=== PATIENT | male | born 1950 | race Caucasian/White ===

== ENCOUNTER 2016-10-01 10:05 | Day surgery (SDC) | payer OTHER, MEDICARE ==
[2016-09-30 15:22] VITALS: BMI 32.8
[2016-10-01] MEDS ORDERED: LIDOCAINE 1%/EPI 1:100000 (50 ML MULTI DOSE VIAL) ONE (11:08)
[2016-10-01] MEDS ORDERED: PROPOFOL 20 ML ONE (12:04)
[2016-10-01] MEDS ORDERED: MIDAZOLAM HCL 2 MG/2 ML SINGLE DOSE VIAL ONE (12:06)
[2016-10-01] MEDS ORDERED: LIDOCAINE HCL 1%, 10 MG/ML (20ML VIAL) IJ ONE (12:27)
--- NOTE | 2016-10-01 13:14 | OP ---
Operative Note - Note: Operative Date: 10/01/16 Pre-Operative Diagnosis: sebacceous cyst of forehead Operation: excision of sebacceous cyst Findings: sebacceous cyst Post-Operative Diagnosis: Same as Pre-op Surgeon: Bradley Rivera Anesthesia: Local, MAC Estimated Blood Loss (mls): 20 Operative Report Dictated: Yes
[2016-10-01] MEDS ORDERED: IBUPROFEN 600 MG TABLET (FP) PO PRN (13:18)
[2016-10-01] MEDS ORDERED: DEXTROSE 5%-LACTATED RINGERS 1,000 ML IV SCH (13:30)
[2016-10-01] MEDS ORDERED: ONDANSETRON 4 MG/2 ML VIAL IVPUSH PRN (13:32)
[2016-10-01 13:57] VITALS: TEMP 98.2
[2016-10-01 16:10] VITALS: BP 137/81; PULSE 72
--- NOTE | 2016-10-02 12:35 | PATH ---
Surgical Pathology Report Patient Name: BRADLEY MOON [facility]. Rec. #: [id number] /Age/Gender: 1950 (Age: 66) / M Account: [id number] Location: [facility] Taken: 10/01/2016 Received: 10/01/2016 Reported: 10/02/2016 Physicians: Bradley Rivera M.D. Specimen(s) Received SEBACEOUS CYST RIGHT FOREHEAD Clinical History Sebaceous cyst Final Diagnosis CYST, RIGHT FOREHEAD, EXCISION: CONSISTENT WITH BENIGN EPIDERMAL CYST. Electronically Signed Lanre Fink M.D. Gross Description Received in formalin labeled "sebaceous cyst right forehead" is a 0.8 x 0.6 x 0.3 cm matamoros-brown, irregular portion of soft tissue. The specimen is bisected and entirely submitted in one cassette. /10/01/201610/01/2016
--- NOTE | 2016-10-03 08:52 | OP ---
DATE OF OPERATION: 10/01/2016 PREOPERATIVE DIAGNOSIS: Sebaceous cyst of forehead. POSTOPERATIVE DIAGNOSIS: Sebaceous cyst of forehead. PROCEDURE: Excision of sebaceous cyst. SURGEON: Bradley Caba MD ANESTHESIA: Local with sedation, approximately 5 mL of local anesthesia used. COMPLICATIONS: None. ESTIMATED BLOOD LOSS: Minimal. CONDITION: Patient tolerated the procedure well. SPECIMEN: Sebaceous cyst. This is a 66-year-old male who presents with a history of a lesion on the right aspect of the forehead which has been growing in size. Patient was referred for surgical evaluation and excision. Risks and benefits discussed. Significance in terms of pathology was also reviewed. The patient agreed to proceed as planned. In the operating room, he was placed in the supine position. After the administration of IV sedation, the area was prepped and then draped accordingly in sterile fashion. After infiltrated 1% lidocaine, an incision was made along the creases of the skin lines and over the lesion with a scalpel. The lesion was dissected with the use of cautery circumferentially and there was some minor bleeding from the deep superior aspect of the wound and this required a 3-0 Vicryl suture figure-[id number] ligated. The wound was then checked for hemostasis, irrigated and suctioned properly, and then after satisfactory hemostasis it was closed with two 3-0 Vicryl sutures in interrupted fashion to approximate the subcutaneous tissues and 4-0 Monocryl was then placed in a subcuticular fashion. Dermabond was applied, a sterile dressing. The patient was returned to the recovery room awake and alert, in stable condition. He tolerated the procedure well. BRADLEY CABA M.D. [id number]
== END 2016-10-01 15:00 | disposition home or self-care (01) ==
LOC: JASU-SURG 10:05
PROVIDERS: ATTEND Surgery
PROC: 09QK0ZZ Repair Nasal Mucosa and Soft Tissue, Open Approach (ICD-10-PCS; 2016-10-01)
PROC: 0HB1XZZ Excision of Face Skin, External Approach (ICD-10-PCS; principal; 2016-10-01 12:00)
DX: L72.3 Sebaceous cyst (principal)
CPT/HCPCS: 88304-TC; 94760

== ENCOUNTER 2021-03-23 17:37 | Emergency (ER) | payer OTHER, MEDICARE ==
[2021-03-23 17:49] VITALS: BP 120/80; PULSE 82; TEMP 98.8; BMI 29.0
== END 2021-03-23 19:32 | disposition home or self-care (01) ==
LOC: JER 17:37
DX: Z11.52 Encounter for screening for COVID-19 (principal)
CPT/HCPCS: 99283-25; C9803; U0003; U0005